=== PATIENT | female | born 1985 | race Caucasian/White ===

== ENCOUNTER 2018-04-28 13:29 | Emergency (ER) | payer BC ==
[2018-04-28 13:44] VITALS: BP 125/66
[2018-04-28] MEDS ORDERED: METO10TA81 PO (13:54)
--- NOTE | 2018-04-28 13:54 | PHYS DOC ---
Past History Past Medical History: No Pertinent History Past Surgical History: , Other Alcohol Use: None Drug Use: None Adult General Chief Complaint Chief Complaint: COUGH HPI HPI Patient is a 32-year-old female with cough, congestion, runny nose, body aches, malaise and low-grade fever. She did have her flu shot this year. She had a daughter with a similar illness not long ago. She denies any nausea or vomiting. She does state she has some pain in her chest when she coughs. She states she's been eating drinking voiding and stooling normally.[] Review of Systems Review of Systems Constitutional: Per history of present illness[] Eyes: Denies change in visual acuity, redness, or eye pain [] HENT: Denies nasal congestion or sore throat [] Respiratory: Reports cough and congestion as described above[] Cardiovascular: No additional information not addressed in HPI [] GI: Denies abdominal pain, nausea, vomiting, bloody stools or diarrhea [] : Denies dysuria or hematuria [] Musculoskeletal: Reports body aches[] Integument: Denies rash or skin lesions [] Neurologic: Denies headache, focal weakness or sensory changes [] Endocrine: Denies polyuria or polydipsia [] All other systems were reviewed and found to be within normal limits, except as documented in this note. Allergies Allergies Allergies Coded Allergies Type Severity Reaction Last Updated Verified No Known Drug Allergies 04/28/18 No Physical Exam Physical Exam Constitutional: Well developed, well nourished, no acute distress, non-toxic appearance. [] HENT: Normocephalic, atraumatic, bilateral external ears normal, oropharynx moist, no oral exudates, nose normal. [] Eyes: PERRLA, EOMI, conjunctiva normal, no discharge. [] Neck: Normal range of motion, no tenderness, supple, no stridor. [] Cardiovascular:Heart rate regular rhythm, no murmur [] Lungs & Thorax: Bilateral breath sounds clear to auscultation [] Abdomen: Bowel sounds normal, soft, no tenderness, no masses, no pulsatile masses. [] Skin: Warm, dry, no erythema, no rash. [] Back: No tenderness, no CVA tenderness. [] Extremities: No tenderness, no cyanosis, no clubbing, ROM intact, no edema. [] Neurologic: Alert and oriented X 3, normal motor function, normal sensory function, no focal deficits noted. [] Psychologic: Affect normal, judgement normal, mood normal. [] Current Patient Data Vital Signs Vital Signs Date Time Temp Pulse Resp B/P (MAP) Pulse Ox O2 Delivery O2 Flow Rate FiO2 04/28/18 13:44 100.9 87 18 96 Room Air EKG EKG [] Radiology/Procedures Radiology/Procedures [] Course & Med Decision Making Course & Med Decision Making Pertinent Labs and Imaging studies reviewed. (See chart for details) [] Dragon Disclaimer Dragon Disclaimer This electronic medical record was generated, in whole or in part, using a voice recognition dictation system. Departure Departure: Impression: Primary Impression: Flu-like symptoms Disposition: HOME, SELF-CARE Condition: STABLE Referrals: [facility] (PCP) Patient Instructions: Viral Infections Additional Instructions: Drink plenty of fluids. Take metoclopramide as directed for your headache. Return to the emergency department with any new or concerning symptoms Scripts Metoclopramide Hcl (REGLAN) 10 Mg Tablet 10 MG PO PRN Q8HRS PRN for HEADACHE, #30 TAB 3 Refills Prov: JOSEPH LYLE DO 04/28/18 JOSEPH LYLE DO Apr 28, 2018 13:54
[2018-04-28] MEDS ORDERED: KETOROLAC 60 MG/2 ML VIAL. IM ONE (14:00)
== END 2018-04-28 14:17 | disposition home or self-care (01) ==
LOC: ER 13:29
DX: R05 Cough (principal); R09.81 Nasal congestion; R09.89 Other specified symptoms and signs involving the circulatory and respiratory systems; M79.10 Myalgia, unspecified site; R50.9 Fever, unspecified; R53.81 Other malaise
CPT/HCPCS: 96372; 99283; J1885

== ENCOUNTER → 2021-01-12 | Outpatient (CLI) | payer SELFPAY ==
[~2021-01-12] MED LIST: METO10TA81 PO
--- NOTE | 2021-01-12 20:06 | RAD ---
Exam Date: 01/12/2021 6:56 PM XR EXAM OF ANKLE_LEFT 3V Indication: Reason: S/P FALL / Spl. Instructions: / History: . FINDINGS/ IMPRESSION: There is a nondisplaced acute avulsion of the medial malleolus tip. Soft tissue swelling around the ankle is noted. Ankle mortise is intact. Mild enthesopathy is present. Mild to moderate additional degenerative changes are noted. Electronically signed by: Tejas Aparicio MD (01/12/2021 8:04 PM) [facility]
== END ==
LOC: RAD 18:41
PROVIDERS: ATTEND Nurse Practitioner Family
DX: M19.072 Primary osteoarthritis, left ankle and foot (principal); M25.472 Effusion, left ankle; M77.8 Other enthesopathies, not elsewhere classified; W19.XXXA Unspecified fall, initial encounter
CPT/HCPCS: 73610